=== PATIENT | female | born 1995 | race Caucasian/White ===

== ENCOUNTER → 2021-12-12 15:10 | Observation (INO) | END | disposition home or self-care (01) | LOC: 1NENULAB | PROVIDERS: ADMIT Obstetrics & Gynecology; ATTEND Obstetrics & Gynecology ==

== ENCOUNTER 2021-12-20 12:55 | Inpatient (IN) ==
[2021-12-20] MEDS ORDERED: Famotidine 20 MG/2 ML VIAL IVP PRN (14:29)
[2021-12-20] MEDS ORDERED: Metoclopramide 10 MG/2 ML VIAL IVP PRN ×2 (14:29→15:33)
[2021-12-20] MEDS ORDERED: Lidocaine 1% 20 ML MDV INFILT PRN (14:29)
[2021-12-20] MEDS ORDERED: Naloxone 0.4 MG/ML INJ IVP PRN (14:29)
[2021-12-20 15:04] LABS: Amphetamine Screen,Urine Negative ng/mL (Cutoff=1000); Barbiturate Screen,Urine Negative ng/mL (Cutoff=200); Benzodiazepines Screen,Urine Negative ng/mL (Cutoff=200); Cannabinoid Screen,Urine Negative ng/mL (Cutoff = 50); Cocaine Screen,Urine Negative ng/mL (Cutoff= 300); Creatinine,Urine 276 mg/dL; Opiate Screen,Urine Negative ng/mL (Cutoff=300); Phencyclidine Screen,Urine Negative ng/mL (Cutoff=25)
[2021-12-20] MEDS: miSOPROStoL 25 MCG TABLET VG SCH ×2 (16:07→22:01)
[2021-12-20 17:18] LABS: Alanine Aminotransferase 8 Units/L (7-52); Aspartate Amino Transferase 17 Units/L (13-39); BUN/Creatinine Ratio 10 (6-26); Blood Urea Nitrogen 8 mg/dL (6-20); Lactate Dehydrogenase 172 Units/L (140-271); Uric Acid 5.5 mg/dL (2.3-7.6)
[2021-12-20 17:26] LABS: Basophils % 0.4 %; Eosinophils % 0.4 %; Hematocrit 39.3 % (35.3-44.9); Hemoglobin 12.6 g/dL (11.5-15.4); Immature Granulocytes % 0.4 % (0-4); Immature Platelets 14.3 % (1.1-6.1); Lymphocytes # 1.2 K/mcL (0.6-4.6); Lymphocytes % 14.1 %; Mean Corpuscular HGB Conc 32.1 g/dL (31.6-35.5); Mean Corpuscular Hemoglobin 28.9 pg (28.0-33.3); Mean Corpuscular Volume 90.1 fL (83.0-100.0); Mean Platelet Volume 13.4 fL (9.4-12.4); Monocytes # 0.7 K/mcL (0.0-1.3); Monocytes % 7.9 %; Neutrophils # 6.4 K/mcL (1.6-8.9); Platelet Count 203 K/mcL (140-400); Red Blood Count 4.36 M/mcL (3.82-4.97); Red Cell Distribution Width 16.1 % (11.5-14.5); Segmented Neutrophils % 76.8 %; White Blood Count 8.3 K/mcL (4.3-11.1)
[2021-12-20] MEDS ORDERED: EPHEDrine sulfate 50 MG/10 ML VIAL IVP PRN (20:04)
[2021-12-20] MEDS ORDERED: *HR* FentaNYL (PF) 100 MCG/2 ML VIAL EP ONE (20:04)
[2021-12-20] MEDS ORDERED: Ropivacaine/PF 0.2% 20 ML VIAL EP ONE (20:04)
[2021-12-20] MEDS ORDERED: Epidural Premix (fent/bupiv) 110 ML EP ONE (20:08)
[2021-12-21] MEDS ORDERED: miSOPROStoL 25 MCG TABLET PO STA (02:23)
[2021-12-21] MEDS: Ondansetron 4 MG/2 ML VIAL IVP PRN ×2 (06:35→16:09)
[2021-12-21] MEDS: Oxytocin 30 UNIT/503 ML BAG IVC SCH (07:39)
[2021-12-21] MEDS: Epidural Premix (fent/bupiv) 110 ML EP SCH ×2 (10:01→18:19)
[2021-12-21] MEDS: Ringers Solution, Lactated 1,000 ML IVC SCH ×2 (12:44→20:19)
[2021-12-22] MEDS: Ringers Solution, Lactated 1,000 ML IVC SCH ×2 (01:17→09:22)
[2021-12-22] MEDS ORDERED: Ropivacaine/PF 0.5% 30 ML VIAL ONE (09:43)
[2021-12-22] MEDS ORDERED: Ropivacaine/PF 0.2% 20 ML VIAL ONE (09:43)
[2021-12-22] MEDS: Epidural Premix (fent/bupiv) 110 ML EP SCH ×2 (09:43→15:50)
[2021-12-22] MEDS ORDERED: Ibuprofen 400 MG TABLET PO ONE (16:42)
[2021-12-22] MEDS: Oxytocin 30 UNIT/503 ML BAG IVC SCH (18:03)
[2021-12-22] MEDS ORDERED: OXYTOCIN/RINGERS LACTATE 10 UNIT/166.6 ML BAG IVC ONE (18:53)
[2021-12-22] MEDS ORDERED: Benzocaine/Menthol 56 GM AEROSOL SPRAY TP PRN (18:53)
[2021-12-22] MEDS ORDERED: Oxytocin 30 UNIT/503 ML BAG IVC SCH (18:53)
[2021-12-22] MEDS ORDERED: Lanolin 7 G OINT...G. TP PRN (18:53)
[2021-12-22] MEDS ORDERED: Measles/Mumps/Rubella Vacc 0.5 ML VIAL SQ PRN (18:53)
[2021-12-22] MEDS ORDERED: Rho Immune Globulin 1,500 UNIT SYRINGE IM PRN (18:53)
[2021-12-22] MEDS ORDERED: Ondansetron ODT 4 MG TAB.RAPDIS SL PRN (18:53)
[2021-12-22] MEDS ORDERED: Chloraseptic Spray 177 ML BOTTLE MM PRN (19:51)
[2021-12-22] MEDS: Acetaminophen 325 MG TABLET PO SCH (20:31)
[2021-12-22] MEDS: Ibuprofen 600 MG TABLET PO SCH (20:31)
[2021-12-23 00:09] VITALS: TEMP 97.6; O2SAT 97
[2021-12-23] MEDS: Acetaminophen 325 MG TABLET PO SCH (04:25)
[2021-12-23] MEDS: Ibuprofen 600 MG TABLET PO SCH (04:25)
[2021-12-23 07:35] VITALS: BP 112/70; PULSE 78
[2021-12-23] MEDS ORDERED: Prenatal Vit/FA 1 EACH TABLET PO SCH (09:00)
== END 2021-12-23 17:10 | disposition home or self-care (01) | DRG 807 ==
LOC: 1NENULAB 12:55 → 1NENUOBS 12-22 18:52
PROVIDERS: ADMIT Student in an Organized Health Care Education/Training Program; ATTEND Student in an Organized Health Care Education/Training Program